=== PATIENT | female | born 1955 | race African-American/Black ===

== ENCOUNTER 2016-11-05 16:59 | Emergency (ER) | payer MEDICARE ==
[2014-05-25 13:35] VITALS: BMI 31.4
[~2016-11-05 16:59] MED LIST: BAYER CHEWABLE81 MG PO; COREG12.5 MG PO; COZAAR25 MG PO; NOVOLOG100 U/M1 SC
[2016-11-05 18:53] LABS: BASOPHILS 0.2 % (0-2); EOSINOPHILS 0.4 % (0-7); HEMATOCRIT 35.8 % (36.0-48.0); HEMOGLOBIN 11.6 g/dL (12-16); IMMATURE GRANULOCYTES 0.4 % (0-5); LYMPHOCYTES 14.4 % (15-50); MCH 29.1 pg (26.0-34.0); MCHC 32.4 g/dL (31.0-37.0); MCV 89.9 fL (80.0-100.0); MEAN PLATELET VOLUME 10.5 fL (7.4-10.4); MONOCYTES 9.7 % (2-11); NEUTROPHILS 74.9 % (40-80); PLATELET COUNT 189 10x3/uL (130-400); RBC 3.98 10x6/uL (4.00-5.40); RDW 13.2 % (11.5-14.5); WBC 10.5 10x3/uL (4.8-10.8)
[2016-11-05 19:02] LABS: ALBUMIN 3.3 g/dL (3.4-5.0); ALKALINE PHOSPHATASE 93 U/L (46-116); ALT (SGPT) 21 U/L (10-68); BILIRUBIN - TOTAL 0.61 mg/dL (0.2-1.3); CALC OSMOLALITY 277 mosm/kg (275-300); CALCIUM 9.2 mg/dL (8.5-10.1); CARBON DIOXIDE 28.3 mmol/L (21.0-32.0); CHLORIDE - SERUM 101 mmol/L (98-107); CREATININE - SERUM 1.3 mg/dL (0.6-1.3); GLUCOSE 123 mg/dL (74-106); POTASSIUM - SERUM 4.1 mmol/L (3.5-5.1); PROTEIN - SERUM 8.8 g/dL (6.4-8.2); SODIUM 137 mmol/L (136-145); UREA NITROGEN 20 mg/dL (7-18); eGFR NON AFRICAN AMERICAN 44 mL/min (90-120)
[2016-11-05 19:04] LABS: AMYLASE - SERUM 61 U/L (25-115); LIPASE 84 U/L (73-393)
[2016-11-05 19:05] LABS: TROPONIN-I < 0.017 ng/mL (0.000-0.060)
[2016-11-05 20:30] LABS: APPEARANCE CLOUDY (CLEAR); COLOR YELLOW (YELLOW)
[2016-11-05 20:31] LABS: BILIRUBIN NEGATIVE (NEGATIVE); GLUCOSE NEGATIVE (NEGATIVE); KETONE NEGATIVE (NEGATIVE); LEUKOCYTE ESTERASE 2+ (NEGATIVE); NITRITE POSITIVE (NEGATIVE); PROTEIN TRACE mg/dL (NEGATIVE); SPECIFIC GRAVITY 1.015 (1.005-1.020); UROBILINOGEN NORMAL (NORMAL)
[2016-11-05 20:32] LABS: WHITE CELLS - URINE >50 /hpf (0-5)
[2016-11-05 20:33] LABS: BACTERIA FEW /hpf (NONE SEEN); EPITHELIAL CELLS NSEEN /hpf (0-5); RED CELLS - URINE 0-5 /hpf (0-5)
== END 2016-11-05 21:29 | disposition home or self-care (01) ==
LOC: D.ER 16:59
PROVIDERS: Emergency Medicine
DX: K29.00 Acute gastritis without bleeding (principal); K21.9 Gastro-esophageal reflux disease without esophagitis; E11.9 Type 2 diabetes mellitus without complications; Z79.4 Long term (current) use of insulin

== ENCOUNTER 2018-03-26 19:18 | Emergency (ER) | payer MEDICARE | END 2018-03-26 21:23 | disposition home or self-care (01) | LOC: D.ER 19:18 | DX: S61.242A Puncture wound with foreign body of right middle finger without damage to nail, initial encounter (principal); X58.XXXA Exposure to other specified factors, initial encounter; Y93.89 Activity, other specified; Y92.89 Other specified places as the place of occurrence of the external cause; E11.9 Type 2 diabetes mellitus without complications; I10 Essential (primary) hypertension ==